=== PATIENT | male | born 1930 | race Caucasian/White ===

== ENCOUNTER 2017-05-16 12:35 | Outpatient (CLI) | payer MEDICARE, BC ==
--- NOTE | 2017-05-16 14:58 | CT ---
CT HEAD NONCONTRAST: History: Altered mental status. Dementia. Comparison: 02-16-12 FINDINGS: There is no evidence of acute intracranial hemorrhage or infarct. Diffuse cortical atrophy and chroni c ischemic small vessel disease are similar in appearance to the prior study. Extraaxial CSF collecti ons along the convexity of each parietal lobe are stable. There is calcification in the arterial stru ctures at the brain base. No mass effect or shift of midline structures. IMPRESSION: Chronic type findings are stable. No acute intracranial abnormalities are demonstrated on noncontrast CT head. POS: MER
== END 2017-05-16 12:36 | disposition home or self-care (01) ==
LOC: CT 12:35
PROVIDERS: ATTEND Family Medicine
DX: F03.90 Unspecified dementia, unspecified severity, without behavioral disturbance, psychotic disturbance, mood disturbance, and anxiety (principal)
CPT/HCPCS: 70450

== ENCOUNTER 2017-07-04 12:36 | Outpatient (CLI) | payer MEDICARE, BC ==
--- NOTE | 2017-07-04 14:17 | ULT ---
BILATERAL LOWER EXTREMITY VENOUS DOPPLER WITH SPECTRAL ANALYSIS AND COLOR FLOW EVALUATION: DATE: 07/04/17. HISTORY: Bilateral lower extremity swelling/edema. FINDINGS: Laboy scale, color flow, Doppler evaluation, and spectral analysis of the bilateral lower extremity st ructures is performed with 2D imaging. In the bilateral lower extremities, the femoral, superficial femoral, popliteal, posterior tibial, most proximal greater saphenous, and profunda femoral veins are imaged. There is normal lumen compressibility, flow, and augmentation in the visualized deep venous structure s of the bilateral lower extremities. IMPRESSION: No evidence of a deep vein thrombosis involving the visualized deep venous structures bilateral lower extremities. POS: CORIN[place]
== END 2017-07-04 12:37 | disposition home or self-care (01) ==
LOC: ULT 12:36
PROVIDERS: ATTEND Family Medicine
DX: R60.9 Edema, unspecified (principal); M79.89 Other specified soft tissue disorders
CPT/HCPCS: 93970

== ENCOUNTER 2017-07-25 12:19 | Inpatient (IN) | payer MEDICARE, BC ==
[2017-07-25 13:16] LABS: #Eosinphils 0.6 thou/uL (0.0-0.7); #Lymphocytes 1.5 thou/uL (1.20-3.40); #Monocytes 0.9 thou/uL (0.11-0.59); #Neutrophils 5.5 thou/uL (1.40-6.50); %Basophils 0.6 % (0.0-1.0); %Eosinophils 7.3 % (0.0-10.0); %Lymphocytes 17.4 % (21.0-51.0); %Monocytes 10.2 % (0.0-10.0); %Neutrophils 64.6 % (42.0-75.0); Hemoglobin 14.8 g/dL (14.0-18.0); Mean Corpuscular HGB CONC 31.5 g/dL (32.0-36.0); Mean Corpuscular Hemoglobin 33.7 pg (27.0-31.0); Mean Platelet Volume 8.8 fL (7.4-10.4); Platelet Count 167 thou/uL (130-400); RBC Distribution Width 13.3 % (11.5-14.5); White Blood Cell (WBC) Count 8.6 thou/uL (4.8-10.8)
[2017-07-25 14:35] LABS: ALT (SGPT) 14 U/L (8-55); AST (SGOT) 12 U/L (5-34); Albumin 3.9 g/dL (3.4-4.8); Alkaline Phosphatase 71 U/L (40-150); Anion Gap 13 mmol/L (10-20); BUN (Urea Nitrogen) 26 mg/dL (8.4-25.7); Bilirubin, Total 0.5 mg/dL (0.2-1.2); Calc. Creatinine Clearance 0 mL/min (70-130); Calcium 8.9 mg/dL (7.8-10.44); Carbon Dioxide 29 mmol/L (23-31); Chloride 102 mmol/L (98-107); Estimated GFR-MDRD 77; Globulin 3.4 g/dL (2.4-3.5); Glucose 100 mg/dL (83-110); Potassium 4.4 mmol/L (3.5-5.1); Protein, Total 7.3 g/dL (5.8-8.1); Sodium 140 mmol/L (136-145)
[2017-07-25] MEDS ORDERED: cefTRIAXone\\ROCEPHIN 2 GM in Sodium Chloride 0.9% 100 ML IVPB SCH (14:45)
[2017-07-25] MEDS ORDERED: Vancomycin HCl 1.25 GM in Sodium Chloride 0.9% 250 ML 250 ML IVPB SCH (14:45)
[2017-07-25] MEDS ORDERED: VANCOMYCIN IVPB PRN (14:50)
[2017-07-25] MEDS ORDERED: Milk Of Magnesia 30 ML UDCUP PO PRN (14:55)
[2017-07-25] MEDS ORDERED: HYDROcodone/Acetaminophen 5/325 mg Tablet PO PRN (14:55)
[2017-07-25] MEDS ORDERED: Ondansetron ODT 4 MG TAB PO PRN (14:55)
[2017-07-25 16:56] VITALS: BMI 37.0
[2017-07-25] MEDS ORDERED: Vancomycin HCl 1 GM in Premix Bag 1 BAG IVPB SCH (17:15)
[2017-07-25] MEDS ORDERED: FLU VACC TS2017-18 (>65YR) 0.5 ML SYRINGE IM ONE (17:30)
[2017-07-25] MEDS: Heparin 5,000 UNITS/ML VIAL SC SCH ×2 (17:36→20:04)
--- NOTE | 2017-07-25 18:37 | HP ---
PRIMARY CARE PHYSICIAN: Alejandro Middleton M.D. CHIEF COMPLAINT: Leg swelling. HISTORY OF PRESENT ILLNESS: An 87-year-old male with a past medical history of CAD status post CABG, hypertension, BPH, dementia, chronic venous insufficiency, depression, COPD, hypertension, CHF and O SA, who presents to the emergency room with complaints of left lower extremity swelling, redness and discharge. He was diagnosed with lower limb cellulitis about a month ago and has been started on brian ious oral antibiotics, but has failed outpatient treatment. He denies fevers, chills, shortness of b reath, chest pain, or any other symptoms. He decided to come to the emergency room due to continued drainage, tenderness and discharge from the left lower extremity. In addition, he also had some redn ess and swelling on his right lower extremity, but not as bad as on the left. PAST MEDICAL HISTORY: CAD status post CABG, hypertension, COPD, CHF, IRENE, dementia, chronic venous i nsufficiency, depression. FAMILY AND SOCIAL HISTORY: Reviewed and not pertinent. He drinks alcohol on occasion, but does not smoke cigarettes. PAST SURGICAL HISTORY: Reports surgery for that diverticulitis in 1974, CABG several years ago. ALLERGIES: None. REVIEW OF SYSTEMS: General: Negative for fevers, chills, and weakness. HEENT: Negative. Cardiova scular: Denies chest pain, shortness of breath, palpitations or lower extremity edema. Respiratory: Denies cough, shortness of breath, sputum production. Gastrointestinal: Denies nausea, vomiting. Genitourinary: Negative. Musculoskeletal: Negative. Skin: Positive for redness, swelling, and d ischarge. Allergy/immunology: Negative. Psychiatric: Negative. Neurological: Negative for heada ches, loss of consciousness or dizziness. PHYSICAL EXAMINATION: VITAL SIGNS: Stable. GENERAL: Not in acute distress, lying comfortably in bed. HEENT: PERRLA, EOMI not pale, anicteric. Moist mucous membranes. NECK: Supple, full range of movement. CARDIOVASCULAR: S1 and S2, only with no murmurs, rubs or gallops. RESPIRATORY: Vesicular breath sounds bilaterally with no wheezes, rales or rhonchi. ABDOMEN: Bowel sounds positive, nontender, nondistended, no organomegaly. NEUROLOGIC: Alert and well oriented. No focal deficits. SKIN: Left lower extremity with erythema, differential warmth and purulent discharge just below the left knee to the foot, he also with some erythema in the lower 1/3 of the right lower extremity, but no discharge. NEUROLOGIC: Alert and well oriented. No focal deficit. MUSCULOSKELETAL: Full range of movement, moving extremities spontaneously. ABDOMEN: Positive bowel sounds, nontender, nondistended, no organomegaly. LABORATORY DATA: CBC and CMP largely unremarkable. Blood cultures taken are pending. He was starte d on IV ceftriaxone at the emergency room, which we will continue as well as IV vancomycin. ASSESSMENT AND PLAN: 1. Cellulitis of the lower extremities, cellulitis on the left worse than the right. Cultures have been taken. We will start IV vancomycin and ceftriaxone and follow up culture result. We will also get wound care involved. 2. Coronary artery disease, status post coronary artery bypass graft. Patient is stable and chest p ain free. We will resume home medications. 3. Hypertension. Blood pressure is currently controlled. We will also resume home medication. 4. Obstructive sleep apnea. Unclear if he has a CPAP machine at home, but family states he has not been wearing any or using any breathing treatment. He is saturating well, so we will monitor. 5. Congestive heart failure, not in acute exacerbation. We will resume home medications. 6. Chronic venous insufficiency, likely contributing to his current presentation of cellulitis. Res ume home medications.
[2017-07-25] MEDS: Docusate 100 MG CAP PO SCH (20:03)
[2017-07-26 08:30] LABS: #Eosinphils 0.5 thou/uL (0.0-0.7); #Lymphocytes 1.1 thou/uL (1.20-3.40); #Monocytes 0.9 thou/uL (0.11-0.59); #Neutrophils 4.7 thou/uL (1.40-6.50); %Basophils 0.7 % (0.0-1.0); %Eosinophils 6.9 % (0.0-10.0); %Lymphocytes 15.2 % (21.0-51.0); %Monocytes 12.5 % (0.0-10.0); %Neutrophils 64.7 % (42.0-75.0); Hemoglobin 14.4 g/dL (14.0-18.0); Mean Corpuscular HGB CONC 32.4 g/dL (32.0-36.0); Mean Platelet Volume 8.7 fL (7.4-10.4); Platelet Count 156 thou/uL (130-400); RBC Distribution Width 13.1 % (11.5-14.5); Red Blood Cell (RBC) Count 4.24 mill/uL (4.70-6.10); White Blood Cell (WBC) Count 7.2 thou/uL (4.8-10.8)
[2017-07-26 08:45] LABS: Anion Gap 11 mmol/L (10-20); BUN (Urea Nitrogen) 19 mg/dL (8.4-25.7); Calc. Creatinine Clearance 115 mL/min (70-130); Calcium 8.6 mg/dL (7.8-10.44); Carbon Dioxide 28 mmol/L (23-31); Chloride 104 mmol/L (98-107); Estimated GFR-MDRD 90; Glucose 138 mg/dL (83-110); Potassium 4.2 mmol/L (3.5-5.1); Sodium 139 mmol/L (136-145)
[2017-07-26] MEDS ORDERED: cefTRIAXone\\ROCEPHIN 1 GM in Sodium Chloride 0.9% 100 ML IVPB SCH (09:00)
--- NOTE | 2017-07-26 11:51 | PDOC.PN ---
- Subjective Encounter Start Date: 07/26/17 Encounter Start Time: 12:39 Subjective: No new complaints -: No acute events overnight. - Objective MAR Reviewed: Yes Vital Signs & Weight: Vital Signs (12 hours) Temp Pulse Resp BP BP Pulse Ox 07/26/17 08:00 98.2 F 77 18 104/65 91 L 07/26/17 05:25 97.8 F 79 18 103/63 91 L 07/26/17 00:00 98 F 85 22 H 165/81 H 92 L Weight Weight 288 lb 14.4 oz I&O: 07/25/17 07/26/17 07/27/17 06:59 06:59 06:59 Intake Total 1480 Balance 1480 Result Diagrams: 07/26/17 08:08 07/26/17 08:08 Phys Exam - Physical Examination Constitutional: NAD HEENT: PERRLA, moist MMs, sclera anicteric Neck: supple, full ROM Respiratory: no wheezing, no rales, no rhonchi Cardiovascular: RRR, no significant murmur, no rub Gastrointestinal: soft, non-tender, no distention, positive bowel sounds Musculoskeletal: pulses present, edema present Neurological: non-focal, moves all 4 limbs Psychiatric: A&O x 3 Skin: normal turgor Deviation from normal: LLE with some purulence and erythema, improved. Dx/Plan (1) Cellulitis, leg Code(s): L03.119 - CELLULITIS OF UNSPECIFIED PART OF LIMB Status: Acute Plan: Continue current medications. Comment: Bilateral purulent cellulitis, but worse on left, with oozing lesions. Improved with antibiotics. Will continue and f/u cultures. (2) CAD (coronary artery disease) Code(s): I25.10 - ATHSCL HEART DISEASE OF [place] CORONARY ARTERY W/O ANG PCTRS Status: Chronic Qualifiers: Coronary Disease-Associated Artery/Lesion type: unspecified vessel or lesion type [place] vs. transplanted heart: [place] heart Associated angina: without angina Qualified Code(s): I25.10 - Atherosclerotic heart disease of [place] coronary artery without angina pectoris Plan: Continue home medications. Comment: Stable, chest pain free. (3) BPH (benign prostatic hyperplasia) Code(s): N40.0 - BENIGN PROSTATIC HYPERPLASIA WITHOUT LOWER URINRY TRACT SYMP Status: Acute Qualifiers: Lower urinary tract symptom presence: symptoms absent Qualified Code(s): N40.0 - Benign prostatic hyperplasia without lower urinary tract symptoms Comment: On Tamsulosin (4) CHF (congestive heart failure) Code(s): I50.9 - HEART FAILURE, UNSPECIFIED Status: Chronic Qualifiers: Congestive heart failure type: unspecified congestive heart failure type Congestive heart failure chronicity: chronic Qualified Code(s): I50.9 - Heart failure, unspecified Comment: Stable, not in exacerbation. Will continue home meds, including furosemide and Aldactone (5) Chronic venous insufficiency Status: Chronic Comment: Chronic. Likely contributing to his cellulitis. (6) Dementia Code(s): F03.90 - UNSPECIFIED DEMENTIA WITHOUT BEHAVIORAL DISTURBANCE Status: Chronic Qualifiers: Dementia type: unspecified type Dementia behavioral disturbance: without behavioral disturbance Qualified Code(s): F03.90 - Unspecified dementia without behavioral disturbance Comment: Continue memantine and donepezil (7) HTN (hypertension) Code(s): I10 - ESSENTIAL (PRIMARY) HYPERTENSION Status: Acute Qualifiers: Hypertension type: essential hypertension Qualified Code(s): I10 - Essential (primary) hypertension Comment: Continue captopril (8) IRENE (obstructive sleep apnea) Code(s): G47.33 - OBSTRUCTIVE SLEEP APNEA (ADULT) (PEDIATRIC) Status: Acute Comment: No home CPAP use. Will monitor (9) S/P CABG (coronary artery bypass graft) Code(s): Z95.1 - PRESENCE OF AORTOCORONARY BYPASS GRAFT Status: Acute Comment: chest pain free. - Plan cont current plan of care, continue antibiotics, DVT proph w/heparin * .
[2017-07-26] MEDS: Heparin 5,000 UNITS/ML VIAL SC SCH ×3 (11:59→21:34)
[2017-07-26] MEDS ORDERED: Escitalopram Oxalate 10 mg Tablet PO SCH (12:00)
[2017-07-26] MEDS: Docusate 100 MG CAP PO SCH ×2 (12:00→21:34)
[2017-07-26] MEDS ORDERED: Aspirin 325 MG TAB PO SCH (12:00)
[2017-07-26] MEDS ORDERED: Spironolactone 25 MG TAB PO SCH (12:00)
[2017-07-26] MEDS ORDERED: Finasteride 5 MG TAB PO SCH (12:00)
[2017-07-26] MEDS ORDERED: Furosemide 20 MG TAB PO SCH (12:00)
[2017-07-26] MEDS ORDERED: cefTRIAXone\\ROCEPHIN 1 GM, Syringe 0.4 ML in Sterile Water 9.6 ML SLOW IVP SCH (15:00)
[2017-07-26] MEDS: Donepezil HCl 10 MG TAB PO SCH (21:34)
[2017-07-26] MEDS: Mirtazapine 15 MG TAB PO SCH (21:35)
[2017-07-26] MEDS: Tamsulosin HCl 0.4 MG CAP PO SCH (21:35)
[2017-07-26] MEDS: Acetaminophen 325 MG TAB PO PRN (21:35)
[2017-07-27 02:41] LABS: Anion Gap 14 mmol/L (10-20); BUN (Urea Nitrogen) 23 mg/dL (8.4-25.7); Calc. Creatinine Clearance 113 mL/min (70-130); Calcium 8.6 mg/dL (7.8-10.44); Carbon Dioxide 24 mmol/L (23-31); Chloride 106 mmol/L (98-107); Estimated GFR-MDRD 88; Glucose 106 mg/dL (83-110); Potassium 4.4 mmol/L (3.5-5.1); Sodium 140 mmol/L (136-145)
[2017-07-27 03:24] LABS: Band 1 % (5-11); Hemoglobin 13.6 g/dL (14.0-18.0); Lymphocytes 27 % (21-51); MDiff Complete? YES; Mean Corpuscular HGB CONC 31.8 g/dL (32.0-36.0); Mean Corpuscular Hemoglobin 33.3 pg (27.0-31.0); Mean Platelet Volume 8.6 fL (7.4-10.4); Monocytes 5 % (0-10); Neutrophil 59 % (42-75); PLT Morphology Comment Appears Adequate; Platelet Count 146 thou/uL (130-400); RBC Distribution Width 12.9 % (11.5-14.5); Reactive Lymphocytes 8 % (0-10); White Blood Cell (WBC) Count 7.2 thou/uL (4.8-10.8)
[2017-07-27] MEDS: Escitalopram Oxalate 10 mg Tablet PO SCH (09:16)
[2017-07-27] MEDS: Finasteride 5 MG TAB PO SCH (09:17)
[2017-07-27] MEDS: Furosemide 20 MG TAB PO SCH (09:18)
[2017-07-27] MEDS: Aspirin 325 MG TAB PO SCH (09:18)
[2017-07-27] MEDS: Spironolactone 25 MG TAB PO SCH (09:18)
[2017-07-27] MEDS: Heparin 5,000 UNITS/ML VIAL SC SCH ×3 (09:19→19:57)
[2017-07-27] MEDS: Docusate 100 MG CAP PO SCH ×2 (09:19→19:57)
--- NOTE | 2017-07-27 11:49 | PDOC.PN ---
- Subjective Encounter Start Date: 07/27/17 Encounter Start Time: 11:49 Subjective: Feels well. No fevers. -: No acute events overnight. - Objective MAR Reviewed: Yes Vital Signs & Weight: Vital Signs (12 hours) Temp Pulse Resp BP BP Pulse Ox 07/27/17 09:17 119/75 07/27/17 08:41 97.9 F 101 H 20 119/75 90 L 07/27/17 08:00 97.9 F 101 H 20 92 L Weight Admit Weight 288 lb Weight 288 lb 14.4 oz I&O: 07/26/17 07/27/17 07/28/17 06:59 06:59 06:59 Intake Total 1480 1030 240 Balance 1480 1030 240 Result Diagrams: 07/27/17 02:01 07/27/17 02:01 Phys Exam - Physical Examination Constitutional: NAD HEENT: PERRLA, moist MMs, sclera anicteric Neck: supple, full ROM Respiratory: no wheezing, no rales, no rhonchi, clear to auscultation bilateral Cardiovascular: RRR, no significant murmur, no rub Gastrointestinal: soft, non-tender, no distention, positive bowel sounds Musculoskeletal: no edema, pulses present Neurological: non-focal, moves all 4 limbs Psychiatric: normal affect, A&O x 3 Deviation from normal: LLE with dressing covering, slightly soaked w serosanguinous discharge Dx/Plan (1) Cellulitis, leg Code(s): L03.119 - CELLULITIS OF UNSPECIFIED PART OF LIMB Status: Acute Qualifiers: Laterality: left Qualified Code(s): L03.116 - Cellulitis of left lower limb Plan: ID consulted. Will follow recs. Comment: Bilateral purulent cellulitis, but worse on left, with oozing lesions. Improved with antibiotics. Will continue and f/u cultures. (2) CAD (coronary artery disease) Code(s): I25.10 - ATHSCL HEART DISEASE OF [place] CORONARY ARTERY W/O ANG PCTRS Status: Chronic Qualifiers: Coronary Disease-Associated Artery/Lesion type: unspecified vessel or lesion type [place] vs. transplanted heart: [place] heart Associated angina: without angina Qualified Code(s): I25.10 - Atherosclerotic heart disease of [place] coronary artery without angina pectoris Plan: Continue home meds. Comment: Stable, chest pain free. (3) BPH (benign prostatic hyperplasia) Code(s): N40.0 - BENIGN PROSTATIC HYPERPLASIA WITHOUT LOWER URINRY TRACT SYMP Status: Acute Qualifiers: Lower urinary tract symptom presence: symptoms absent Qualified Code(s): N40.0 - Benign prostatic hyperplasia without lower urinary tract symptoms Plan: Continue Tamsulosin. Comment: On Tamsulosin (4) CHF (congestive heart failure) Code(s): I50.9 - HEART FAILURE, UNSPECIFIED Status: Chronic Qualifiers: Congestive heart failure type: unspecified congestive heart failure type Congestive heart failure chronicity: chronic Qualified Code(s): I50.9 - Heart failure, unspecified Comment: Stable, not in exacerbation. Will continue home meds, including furosemide and Aldactone (5) Chronic venous insufficiency Status: Chronic Comment: Chronic. Likely contributing to his cellulitis. (6) Dementia Code(s): F03.90 - UNSPECIFIED DEMENTIA WITHOUT BEHAVIORAL DISTURBANCE Status: Chronic Qualifiers: Dementia type: unspecified type Dementia behavioral disturbance: without behavioral disturbance Qualified Code(s): F03.90 - Unspecified dementia without behavioral disturbance Comment: Continue memantine and donepezil (7) HTN (hypertension) Code(s): I10 - ESSENTIAL (PRIMARY) HYPERTENSION Status: Acute Qualifiers: Hypertension type: essential hypertension Qualified Code(s): I10 - Essential (primary) hypertension Comment: Continue captopril (8) IRENE (obstructive sleep apnea) Code(s): G47.33 - OBSTRUCTIVE SLEEP APNEA (ADULT) (PEDIATRIC) Status: Acute Comment: No home CPAP use. Will monitor (9) S/P CABG (coronary artery bypass graft) Code(s): Z95.1 - PRESENCE OF AORTOCORONARY BYPASS GRAFT Status: Acute Comment: chest pain free. - Plan cont current plan of care, continue antibiotics, DVT proph w/heparin * .
[2017-07-27] MEDS: Donepezil HCl 10 MG TAB PO SCH (19:57)
[2017-07-27] MEDS: Mirtazapine 15 MG TAB PO SCH (19:58)
[2017-07-27] MEDS: Penicillin V Potassium 250 MG TAB PO SCH (19:58)
[2017-07-27] MEDS: Tamsulosin HCl 0.4 MG CAP PO SCH (19:58)
[2017-07-27] MEDS: Acetaminophen 325 MG TAB PO PRN (19:59)
--- NOTE | 2017-07-27 21:04 | CON ---
DATE OF CONSULTATION: 07/27/2017 REASON FOR CONSULTATION: Leg skin changes. HISTORY OF PRESENT ILLNESS: An 87-year-old first admission to this hospital, history of coronary [place] disease, prior bypass graft surgery, hypertension, COPD, and chronic venous insufficiency, which was admitted because of left lower extremity swelling, redness. Given oral antimicrobials before for about a month without improvement. Patient denies any fever, chills and no headaches, visual sympto ms, sore throat, odynophagia, dysphagia, no cough, or sputum production or chest pain. No abdominal pain, diarrhea, or genitourinary symptoms except for incontinence. Reliability of his personal accou nt is limited because of some issues with cognition. PAST MEDICAL HISTORY: CAD with bypass graft surgery, hypertension, COPD, CHF, IRENE, dementia, venous insufficiency, depression. SOCIAL HISTORY: Drinks on occasion, never smoker. PAST SURGICAL HISTORY: Diverticulosis with diverticulitis, bypass graft surgery. ALLERGIES: None. CURRENT MEDICATIONS: Tylenol, aspirin, Capoten, Rocephin, donepezil, Aricept, Lexapro, Proscar, Lasi x, Namenda, Zofran, Aldactone, vancomycin. PHYSICAL EXAMINATION: VITAL SIGNS: T-max 98.2, blood pressure 119/75, pulse 101, respirations 20, O2 sat 98%. GENERAL: Appears in no distress. SKIN: Shows area of erythema in the right leg with circumferential distribution similar to the right , will be more woozy in the mid on the left compared with the right. There is some dermatosclerosis, hyperkeratosis, and skin dryness in all the areas. Peripheral IV access. No Lopez catheter. No ly mphadenopathy. HEENT: Ocular movements are conjugate. Oral cavity with numerous missing teeth. NECK: Supple. LUNGS: With symmetric air entry. HEART: S1, S2, regular rate without murmurs. No S3 or S4. ABDOMEN: Soft, not distended or mild distention, no ascites, no organomegaly, or bladder distention, or tenderness. EXTREMITIES: No joint inflammatory activity. Pulses are 1+ in dorsalis pedis, onychogryphosis noted . Onychodystrophy noted as well. He is able to move all extremities. NEUROLOGIC: He knows his name. He knows where he is. Recollection has some areas of gap. The chano ent has a hard time remembering. LABORATORY DATA: White cell count 8.6 to 7.2, hemoglobin 13, platelets 146 with normal differential. Chemistry was fairly unremarkable. Lactic acid is 1.2. ASSESSMENT: 1. Chronic venous insufficiency with stasis dermatitis. 2. Coronary artery disease. DISCUSSION: The findings are more consistent with stasis dermatitis. We would recommend discontinua tion of antimicrobial therapy. Transition to penicillin suppressive therapy 250 mg twice daily and t hen [place] boot bilaterally with wound care consultation.
[2017-07-28 05:47] LABS: #Eosinphils 0.6 thou/uL (0.0-0.7); #Lymphocytes 1.5 thou/uL (1.20-3.40); #Monocytes 0.9 thou/uL (0.11-0.59); #Neutrophils 3.7 thou/uL (1.40-6.50); %Basophils 0.2 % (0.0-1.0); %Eosinophils 8.7 % (0.0-10.0); %Lymphocytes 22.6 % (21.0-51.0); %Monocytes 13.9 % (0.0-10.0); %Neutrophils 54.6 % (42.0-75.0); Hemoglobin 13.5 g/dL (14.0-18.0); Mean Corpuscular HGB CONC 31.6 g/dL (32.0-36.0); Mean Corpuscular Hemoglobin 33.1 pg (27.0-31.0); Mean Platelet Volume 8.6 fL (7.4-10.4); Platelet Count 166 thou/uL (130-400); RBC Distribution Width 12.9 % (11.5-14.5); Red Blood Cell (RBC) Count 4.09 mill/uL (4.70-6.10); White Blood Cell (WBC) Count 6.8 thou/uL (4.8-10.8)
--- NOTE | 2017-07-28 09:16 | PDOC.PN ---
- Subjective Encounter Start Date: 07/28/17 Encounter Start Time: 07:50 -: old records requested/rev - Objective MAR Reviewed: Yes Vital Signs & Weight: Vital Signs (12 hours) Temp Pulse Resp BP Pulse Ox 07/28/17 07:42 99.0 F 106 H 16 126/82 92 L Weight Admit Weight 288 lb Weight 288 lb 14.4 oz I&O: 07/27/17 07/28/17 07/29/17 06:59 06:59 06:59 Intake Total 1030 610 Balance 1030 610 Result Diagrams: 07/28/17 04:45 07/27/17 02:01 Radiology Reviewed by me: Yes Phys Exam - Physical Examination Constitutional: NAD HEENT: PERRLA, moist MMs, sclera anicteric Neck: no JVD, supple Respiratory: no wheezing, no rales, no rhonchi Cardiovascular: RRR, no significant murmur, no rub Gastrointestinal: soft, non-tender, no distention, positive bowel sounds left leg with DESIREE wrapping, Neurological: non-focal, normal sensation Lymphatic: no nodes Psychiatric: normal affect Skin: no rash, normal turgor Dx/Plan (1) Stasis dermatitis of both legs Code(s): I87.2 - VENOUS INSUFFICIENCY (CHRONIC) (PERIPHERAL) Status: Acute (2) BPH (benign prostatic hyperplasia) Code(s): N40.0 - BENIGN PROSTATIC HYPERPLASIA WITHOUT LOWER URINRY TRACT SYMP Status: Chronic Qualifiers: Lower urinary tract symptom presence: symptoms absent Qualified Code(s): N40.0 - Benign prostatic hyperplasia without lower urinary tract symptoms Comment: On Tamsulosin (3) CAD (coronary artery disease) Code(s): I25.10 - ATHSCL HEART DISEASE OF [place] CORONARY ARTERY W/O ANG PCTRS Status: Chronic Qualifiers: Coronary Disease-Associated Artery/Lesion type: unspecified vessel or lesion type [place] vs. transplanted heart: [place] heart Associated angina: without angina Qualified Code(s): I25.10 - Atherosclerotic heart disease of [place] coronary artery without angina pectoris Comment: (4) Chronic diastolic (congestive) heart failure Code(s): I50.32 - CHRONIC DIASTOLIC (CONGESTIVE) HEART FAILURE Status: Chronic (5) Chronic venous insufficiency Status: Chronic Comment: (6) Dementia Code(s): F03.90 - UNSPECIFIED DEMENTIA WITHOUT BEHAVIORAL DISTURBANCE Status: Chronic Qualifiers: Dementia type: unspecified type Dementia behavioral disturbance: without behavioral disturbance Qualified Code(s): F03.90 - Unspecified dementia without behavioral disturbance Comment: Continue memantine and donepezil (7) HTN (hypertension) Code(s): I10 - ESSENTIAL (PRIMARY) HYPERTENSION Status: Chronic Qualifiers: Hypertension type: essential hypertension Qualified Code(s): I10 - Essential (primary) hypertension Comment: Continue captopril (8) IRENE (obstructive sleep apnea) Code(s): G47.33 - OBSTRUCTIVE SLEEP APNEA (ADULT) (PEDIATRIC) Status: Chronic Comment: No home CPAP use. Will monitor - Plan cont current plan of care, plan discussed w/ family, continue antibiotics * continue PCN VK for prophylaxis * needs proper skin care with wound care * will arrange home health * arterial doppler done * will consider discharge if dr webb OK * medication reviewed as below * symptomatic treatment * discussed with . Review of Systems - Review of Systems Eyes: negative: Pain, Vision Change, Conjunctivae Inflammation, Eyelid Inflammation, Redness, Other ENT: negative: Ear Pain, Ear Discharge, Nose Pain, Nose Discharge, Nose Congestion, Mouth Pain, Mouth Swelling, Throat Pain, Throat Swelling, Other Respiratory: negative: Cough, Dry, Shortness of Breath, Hemoptysis, SOB with Excertion, Pleuritic Pain, Sputum, Wheezing Cardiovascular: negative: chest pain, palpitations, orthopnea, paroxysmal nocturnal dyspnea, edema, light headedness, other Gastrointestinal: negative: Nausea, Vomiting, Abdominal Pain, Diarrhea, Constipation, Melena, Hematochezia, Other Genitourinary: negative: Dysuria, Frequency, Incontinence, Hematuria, Retention , Other Musculoskeletal: negative: Neck Pain, Shoulder Pain, Arm Pain, Back Pain, Hand Pain, Leg Pain, Foot Pain, Other - Medications/Allergies Allergies/Adverse Reactions: Allergies Allergy/AdvReac Type Severity Reaction Status Date / Time zolpidem [From Ambien] Allergy HALLUCINATI Verified 07/25/17 14:38 ONS Medications: Current Medications Acetaminophen (Tylenol) 650 mg PO Q4H PRN PRN Reason: Headache/Fever or Pain Last Admin: 07/27/17 19:59 Dose: 650 mg Hydrocodone Bitart/Acetaminophen ([place] 5/325) 1 tab PO Q4H PRN PRN Reason: Moderate Pain (4-6) Last Admin: 07/26/17 02:47 Dose: 1 tab Aspirin (Aspirin) 325 mg PO DAILY [facility] Last Admin: 07/27/17 09:18 Dose: 325 mg Captopril (Capoten) 12.5 mg PO BID [facility] Last Admin: 07/27/17 19:55 Dose: 12.5 mg Cholecalciferol (Vitamin D3) 5,000 units PO DAILY [facility] Last Admin: 07/27/17 09:16 Dose: 5,000 units Docusate Sodium (Colace) 100 mg PO BID [facility] Last Admin: 07/27/17 19:57 Dose: 100 mg Donepezil HCl (Aricept) 10 mg PO HS [facility] Last Admin: 07/27/17 19:57 Dose: 10 mg Escitalopram Oxalate (Lexapro) 10 mg PO DAILY [facility] Last Admin: 07/27/17 09:16 Dose: 10 mg Finasteride (Proscar) 5 mg PO DAILY [facility] Last Admin: 07/27/17 09:17 Dose: 5 mg Furosemide (Lasix) 20 mg PO DAILY [facility] Last Admin: 07/27/17 09:18 Dose: 20 mg Heparin Sodium (Porcine) (Heparin) 5,000 units SC TID [facility] Last Admin: 07/27/17 19:57 Dose: 5,000 units Magnesium Hydroxide (Milk Of Magnesium) 30 ml PO DAILYPRN PRN PRN Reason: Constipation Memantine (Namenda) 5 mg PO BID [facility] Last Admin: 07/27/17 19:58 Dose: 5 mg Mirtazapine (Remeron) 15 mg PO HS [facility] Last Admin: 07/27/17 19:58 Dose: 15 mg Ondansetron HCl (Zofran Odt) 4 mg PO Q6H PRN PRN Reason: Nausea/Vomiting Penicillin V Potassium (Penicillin V Potassium) 250 mg PO BID [facility] Last Admin: 07/27/17 19:58 Dose: 250 mg Spironolactone (Aldactone) 25 mg PO DAILY [facility] Last Admin: 07/27/17 09:18 Dose: 25 mg Tamsulosin HCl (Flomax) 0.4 mg PO HS [facility] Last Admin: 07/27/17 19:58 Dose: 0.4 mg
[2017-07-28] MEDS: Penicillin V Potassium 250 MG TAB PO SCH (11:15)
[2017-07-28] MEDS: Aspirin 325 MG TAB PO SCH (11:15)
[2017-07-28] MEDS: Docusate 100 MG CAP PO SCH (11:20)
[2017-07-28] MEDS: Escitalopram Oxalate 10 mg Tablet PO SCH (11:22)
[2017-07-28] MEDS: Furosemide 20 MG TAB PO SCH (11:22)
[2017-07-28] MEDS: Spironolactone 25 MG TAB PO SCH (11:22)
[2017-07-28] MEDS: Heparin 5,000 UNITS/ML VIAL SC SCH ×2 (11:29→15:23)
[2017-07-28] MEDS: Finasteride 5 MG TAB PO SCH (14:52)
--- NOTE | 2017-07-28 15:01 | ULT ---
LOWER EXTREMITY ARTERIAL EVALUATION: Date: 07/28/17 Lower extremity arterial evaluation was performed with Doppler waveform analysis and segmental limb pressures. Examination of the right leg reveals moderately abnormal femoral waveform with mild to moderate abnor mality of the popliteal waveform and posterior tibial waveform. Ankle-arm index calculates to 1.08 an d toe-brachial index is normal at 0.7. Left lower extremity demonstrates some abnormal waveforms at a ll levels with an ankle-arm index of 1.11 and a toe-brachial index that was depressed at 0.55. This study is suspicious for multilevel vascular disease. Ankle-arm index is normal bilaterally and I suspect this is due to calcified tibial vessels rather than having a normal ankle-arm index. Wavefor ms are clearly abnormal at multiple levels and could be consistent with multilevel vascular disease. CT angiography aorta and runoff if indicated would help clarify this.
--- NOTE | 2017-07-28 15:27 | DIS ---
DATE OF ADMISSION: 07/25/2017 DATE OF DISCHARGE: 07/28/2017 PRIMARY CARE PHYSICIAN: Alejandro Middleton M.D. DISCHARGE DISPOSITION: Home. PRIMARY DISCHARGE DIAGNOSIS: Stasis dermatitis. SECONDARY DISCHARGE DIAGNOSES: Obstructive sleep apnea, hypertension, dementia , chronic venous insufficiency, chronic diastolic heart failure, coronary artery disease, and benign enlargement of prostate. PRIMARY PROCEDURE/OPERATION: None. RADIOLOGICAL INVESTIGATION: Arterial Doppler SIGNIFICANT LABORATORY DATA: WBC 6.8, hemoglobin 13.5, platelets 166. Sodium 140, creatinine 0.82. LFT normal. Blood culture negative. DISCHARGE MEDICATIONS: Penicillin VK 250 mg p.o. twice daily for prophylaxis, aspirin 325 mg p.o. daily, captopril 12.5 mg p.o. b.i.d., vitamin D3 5000 units p.o. daily, Aricept 10 mg p.o. at bedtime, Lexapro 10 mg p.o. daily, Proscar 5 mg p.o. daily, Lasix 20 mg p.o. daily, Namenda XR 14 mg p.o. daily, Remeron 15 mg p.o. at bedtime, omega 3 fish oil 1000 mg p.o. daily, Aldactone 25 mg p.o. daily, Flomax 0.4 mg p.o. daily. CONTRAINDICATIONS: None. CODE STATUS: FULL CODE. 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 Alan was consulted while in hospital. Wound care team was also consulted while in hospital. DISCHARGE PLAN: Post hospital, patient is discharged home with home health and patient will follow up with primary care physician and Dr. Alan. HOSPITAL COURSE: An 87-year-old male who has chronic venous insufficiency, who was admitted by Dr. Andrade. Please see his H&P for further details. This patient was having left lower extremity stasis dermatitis and that is why we admitted this patient in hospital for suspected cellulitis. We initially treated him with vancomycin and Rocephin, but Dr. Alan consulted and he recommended that this patient does not have any cellulitis and he does have only dermatitis and that is why he recommended only Unna boot and wound care. Wound care team consulted while in hospital. Patient also had arterial Doppler study done, but official report is pending. Patient does not have any leukocytosis. He does not have any fever. He does not have any sepsis. At this point, we discontinued antibiotic therapy and we prescribed penicillin VK for prophylaxis to prevent cellulitis. Plan of care discussed with the family member. Patient is given home health arrangement for wound care at home. Patient is medically stable for discharge today. The patient is seen and examined at bedside today. Please see my progress note from today for further details. DAVIDD
[2017-07-28 16:06] VITALS: BP 122/80; TEMP 97.7
== END 2017-07-28 16:31 | disposition home health service (06) | DRG 300 ==
LOC: ERS 12:19 → T4-A 14:58
PROVIDERS: ADMIT Internal Medicine; ATTEND Internal Medicine
DX: I87.2 Venous insufficiency (chronic) (peripheral) (principal); I50.32 Chronic diastolic (congestive) heart failure; I11.0 Hypertensive heart disease with heart failure; F03.90 Unspecified dementia, unspecified severity, without behavioral disturbance, psychotic disturbance, mood disturbance, and anxiety; G47.33 Obstructive sleep apnea (adult) (pediatric); I25.10 Atherosclerotic heart disease of native coronary artery without angina pectoris; Z95.1 Presence of aortocoronary bypass graft; J44.9 Chronic obstructive pulmonary disease, unspecified; N40.1 Benign prostatic hyperplasia with lower urinary tract symptoms; N39.498 Other specified urinary incontinence; F32.9 Major depressive disorder, single episode, unspecified; E66.9 Obesity, unspecified; Z68.37 Body mass index [BMI] 37.0-37.9, adult; E78.5 Hyperlipidemia, unspecified; Z87.891 Personal history of nicotine dependence
CPT/HCPCS: 36415; 80048; 80053; 80202; 83605; 85025; 87040; 90471; 90682; 93922; 96365; A4216; G0008; J0696; J1644; J3370; J7050; Q2036

== ENCOUNTER 2017-08-27 10:24 | Outpatient (CLI) | payer MEDICARE, BC ==
--- NOTE | 2017-08-27 12:17 | CT ---
CT ARTERIOGRAM ABDOMEN AND PELVIS WITH BILATERAL LOWER EXTREMITY RUNOFF WITH IV CONTRAST AND 3D MIP I JUANIS: Date: 08/27/17 HISTORY: Vascular disease. Claudication. FINDINGS: Postsurgical scarring of the anterior abdominal wall is apparent. Small cyst arises from the posterio r cortex of the right kidney. Tiny stones are present within nondilated calices of the left kidney. T here are prominent degenerative changes of the lumbar spine. Atelectasis is apparent at each lung bas e. Abdominal aorta is of normal caliber. There is calcification in the arterial structures. The right iliac, femoral, and popliteal veins are widely patent with three vessel runoff to the right lower leg. The left iliac, femoral, and popliteal veins are widely patent with three vessel runoff to the left l ower leg. Visceral arteries are patent. IMPRESSION: 1. Atherosclerosis. No significant stenosis is apparent. 2. Tiny, nonobstructing left renal calculi. POS: [facility]
[2017-08-27] MEDS ORDERED: Iopamidol 370 76% 100 ML VIAL ONE (16:29)
== END 2017-08-27 10:25 | disposition home or self-care (01) ==
LOC: CT 10:24
PROVIDERS: ATTEND Family Medicine
DX: I73.9 Peripheral vascular disease, unspecified (principal); I70.90 Unspecified atherosclerosis; N20.0 Calculus of kidney
CPT/HCPCS: 75635

== ENCOUNTER 2017-09-03 08:45 | Outpatient (CLI) | payer MEDICARE, BC ==
--- NOTE | 2017-09-03 10:26 | HP ---
DATE OF SERVICE: 09/03/2017 HISTORY OF PRESENT ILLNESS: Mr. Juan Pablo Lopez is a very pleasant 87-year-old gentleman accompanie d by his who is referred to the Wound Center for evaluation of stasis changes of the left lower extremity. The patient's states that the stasis changes of the left lower extremity have been p resent since July of this year. The patient's states that Mr. Lopez has been treated wi th compression garments in the past. The patient resides at [facility] and is receiving dressi ng changes of the 3M Coban 2 layer compression system 2 times per week. The patient was referred to the Wound Center by Dr. Middleton on 08/21/2017. PAST MEDICAL HISTORY: 1. Hypertension. 2. Benign prostatic hypertrophy. 3. Coronary artery disease. 4. Diverticulosis. 5. Chronic obstructive pulmonary disease. 6. Congestive heart failure. 7. Obstructive sleep apnea. 8. Dementia. PAST SURGICAL HISTORY: 1. Sigmoid colectomy with colostomy and subsequent colostomy reversal. 2. Open cholecystectomy. 3. Coronary artery bypass grafting x3. 4. Right knee arthroscopic surgery. MEDICATIONS: 1. Flomax. 2. Lexapro. 3. Newell 3. 4. Vitamin D3. 5. Namenda. 6. Lasix. 7. Donepezil. 8. Mirtazapine. 9. Spironolactone. 10. Finasteride. 11. Capoten. 12. Aspirin. ALLERGIES: No known diagnosed allergies. SOCIAL HISTORY: Significant for tobacco use of 1 pack of cigarettes per day for approximately 10 yea rs. The patient states that he stopped smoking over 20 years ago. The patient admits to the "light" consumption of alcohol. FAMILY HISTORY: Negative for diabetes mellitus or coronary artery disease. PHYSICAL EXAMINATION: VITAL SIGNS: Temperature 98.6, pulse 62, respirations 18, and blood pressure 119/58. GENERAL: An 87-year-old gentleman sitting on wheelchair in examination room in no acute distress. HEENT: Normocephalic, atraumatic. NECK: No nuchal rigidity. CHEST: Clear to auscultation. CARDIOVASCULAR: Regular rate and rhythm. ABDOMEN: Soft. EXTREMITIES: Stasis changes are present over the left lower leg. No open wounds are present. No ce llulitis of the left lower extremity is appreciated. No maceration of the skin of the left lower leg is noted. A dorsalis pedis pulse is palpable on the right and on the left. No significant edema of the right or left lower extremity is present on exam today. ASSESSMENT AND PLAN: 1. Stasis changes of the left lower leg as described above. Orders will be transmitted to [facility] for Topicort 0.25% to the stasis changes of the left lower leg at the time of dressing change s. Webril and 3M Coban 2-layer compression system will be continued to the right and left feet and l ower legs 1-2 times per week at [facility] after cleansing and irrigation. I will see Mr. Veda green again in two weeks. The patient and his understand and are in agreement with the precedin g treatment plan. No antibiotics will be prescribed today based upon the appearance of the left lowe r leg. 2. Hypertension. 3. Benign prostatic hypertrophy. 4. Coronary artery disease. 5. Diverticulosis. 6. Chronic obstructive pulmonary disease. 7. Congestive heart failure. 8. Obstructive sleep apnea. 9. Dementia.
== END 2017-09-03 08:46 | disposition home or self-care (01) ==
LOC: WCC 08:45
PROVIDERS: ATTEND Family Medicine
DX: I87.2 Venous insufficiency (chronic) (peripheral) (principal); I11.0 Hypertensive heart disease with heart failure; I50.9 Heart failure, unspecified; N40.0 Benign prostatic hyperplasia without lower urinary tract symptoms; I25.10 Atherosclerotic heart disease of native coronary artery without angina pectoris; K57.90 Diverticulosis of intestine, part unspecified, without perforation or abscess without bleeding; J44.9 Chronic obstructive pulmonary disease, unspecified; G47.33 Obstructive sleep apnea (adult) (pediatric); F03.90 Unspecified dementia, unspecified severity, without behavioral disturbance, psychotic disturbance, mood disturbance, and anxiety
CPT/HCPCS: 29581 ×2; 97139; G0463; 99203